=== PATIENT | female | born 1940 ===

== ENCOUNTER 2016-12-07 17:00 | Inpatient (IN) | payer MEDICARE ==
[2016-12-18] MEDS ORDERED: MECLIZINE 25 MG TABLET PO ONE (06:00)
[2016-12-18] MEDS ORDERED: METOCLOPRAMIDE 10 MG TABLET PO ONE (06:00)
[2016-12-18] MEDS ORDERED: VANCOMYCIN HCL 1,000 MG in 0.9 % SODIUM CHLORIDE 250ML 250 ML IVPB ONE (06:00)
[2016-12-18] MEDS ORDERED: CELECOXIB 100 MG CAPSULE PO ONE (06:00)
[2016-12-18] MEDS ORDERED: FAMOTIDINE 20MG TABLET PO ONE (06:00)
[2016-12-18 10:03] LABS: ABO GROUP O; ANTIBODY SCREEN NEGATIVE (NEGATIVE); RH TYPE POSITIVE
[2016-12-18] MEDS ORDERED: TRANEXAMIC ACID 1,000 MG/10 ML ML IV ONE ×2 (10:12→14:00)
[2016-12-18] MEDS ORDERED: BUPIVACAINE 0.5% W/EPI MPF 30 ML VIAL IVP ONE (10:12)
[2016-12-18] MEDS ORDERED: 0.9 % SODIUM CHLORIDE 10 ML VIAL IVP ONE (10:12)
[2016-12-18] MEDS ORDERED: ACETAMINOPHEN 325 MG TAB PO PRN (13:00)
[2016-12-18] MEDS ORDERED: HYDROMORPHONE HCL 1MG/ML **SYRINGE IM PRN (13:00)
[2016-12-18] MEDS ORDERED: ZOLPIDEM TARTRATE 5 MG TABLET PO PRN (13:00)
[2016-12-18] MEDS ORDERED: MAGNESIUM HYDROXIDE 30 ML UDC PO PRN (13:00)
[2016-12-18] MEDS ORDERED: HYDROMORPHONE HCL 2 MG/ML VIAL IM PRN (13:00)
[2016-12-18] MEDS ORDERED: ACETAMINOPHEN W/ CODEINE 300MG/60MG TABLET PO PRN ×2 (13:00)
[2016-12-18] MEDS ORDERED: NALOXONE 0.4 MG/1 ML VIAL IVP PRN (13:00)
[2016-12-18] MEDS ORDERED: KETOROLAC 30 MG/ML VIAL IVP PRN ×2 (13:00)
[2016-12-18] MEDS ORDERED: AL HYDROX/MAG HYDROX 30ML UD PO PRN (13:00)
[2016-12-18] MEDS ORDERED: BISACODYL 10 MG SUPP RC PRN (13:00)
[2016-12-18] MEDS ORDERED: DIPHENHYDRAMINE HCL 25 MG CAPSULE PO PRN (13:00)
[2016-12-18] MEDS ORDERED: ONDANSETRON HCL IV 4 MG/2 ML VIAL IVP PRN (13:00)
[2016-12-18] MEDS ORDERED: HYDROCODONE/APAP 10/325 TABLET PO PRN (13:00)
[2016-12-18] MEDS ORDERED: FENTANYL PF 100MCG/2ML VIAL IV ONE (14:00)
[2016-12-18] MEDS ORDERED: PROPOFOL 10 MG/ML VIAL IV ONE (14:00)
[2016-12-18] MEDS ORDERED: MIDAZOLAM HCL 2MG/2ML VIAL IV ONE (14:00)
[2016-12-18] MEDS ORDERED: ONDANSETRON HCL IV 4 MG/2 ML VIAL IVP ONE (14:00)
[2016-12-18] MEDS ORDERED: HYDROMORPHONE HCL 2 MG/ML VIAL IV ONE (14:00)
--- NOTE | 2016-12-18 17:00 | Rehab Evaluation ---
Patient Information - Patient Information Diagnosis: R knee OA Ordered Treatment: PT Evaluate and Treat Status: Initial Evaluation Surgery: Yes Date of Surgery: 12/18/16 Past Medical/Surgical Hx: PAST MEDICAL/SURGICAL HISTORY Surgery to Affected Area? Yes Recent Surgery? Past Surgical History 1972 right menisectomy , Childbirth 60, 62 and 67; 1993 [place], 2001-Total hyst, 2006- R bunionectomy, colonoscopies PMH - Respiratory Hx Respiratory Disorders Yes Hx Bronchitis Yes: Last winter-07/18 Hx Sleep Apnea Yes: Since 2005 Hx of CPAP Yes PMH - Cardiovascular Hx Cardiovascular Disorders Yes Hx Hypertension Yes: Occasionally 130-140 syst, no treatment Hx Rheumatic Fever mitral valve slow in closing sometimes Exercise Tolerance Good PMH - Neuro Hx Neurological Disorders No PMH - GI Hx Gastrointestinal Disorders No PMH - Hx Genitourinary Disorders No Hx Age of Menopause 48 Patient No PMH - Endocrine Hx Endocrine Disorders No PMH - Musculoskeletal Hx Musculoskeletal Disorders Yes Hx Arthritis Yes: both knees, generalized Comment: osteopenia PMH - Psych Hx Psychiatric Problems No PMH - Hematology/Oncology Hx Hematology/Oncology Yes Disorders Hx Anemia Yes: Due to the cancer Hx Blood Disorders Yes: lymphoma Hx Cancer Yes: non-hodgkins lymphoma-Tcell and Bcell in remission Hx Chemotherapy Yes: Retuxin X4 last in 12/17 and nitrogen mustard -96 Hx Radiation Therapy No Hx Blood Transfusion Reaction No Comment: 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 The patient 's bathroom is equipped with a walk in shower with a seat and grab bar, a elevated toilet with grab bars. The patient was independent with all ADL's and cloth reeler. The patient has a 4 wheeled walker. The patient's family was instructed to bring the patient's 4 wheeled walker tomorrow to see if patient could ambulate safely with this device. The family was assured a two wheeled walker could be vended if necessary. The patient going to a Rehabilitation facility following discharge from [facility].) - Time With Patient Total Time Spent With Patient (Min): 30 Treatment Procedures: Detail (PT initial Evaluation) Subjective Information - Subjective Information Per Patient (The patient was sleeping with CPAP when PT arrived with patient's family present. The patient was easily roused but frequently closed eyes and fell asleep during PT session. The patient complained of dizziness and nausea but denied R knee pain.) Objective Data - Mental Status Patient Orientation: Oriented x3 (The patient was lethargic but followed simple commands.) - Visual Perception Appears within normal limits for therapeutic activities - ROM Not within normal limits (The patient's R knee AROM was not formally assessed however knee extension was 0, flexion aprox. 70 degrees when sitting on the edge of bed. The patient's R hip and ankle AROM were WNL. The patient's L LE AROM was WFL.) - Strength/Tone Not within normal limits (The patient's R LE strength was not formally assessed secondary to status post surgery, however her strength was functional ie: patient was able to complete a SLR. The patient's L LE strength was also not formally assessed but was functional.) - Bed Mobility Independent (The patient was independent with supine to and from sit transfer and scooting up in bed.) - Transfers Independent (The patient required CG with sit to stand transfer and verbal cues for proper technique.) - Balance Balance Sitting: Good Balance Standing: Fair (The patient required support of 2 wheeled walker for safety.) - Gait Detail (The patient stood x 30 to 45 seconds to 2 wheeled walker with WBAT on the R LE with CG of 1. The patient had complaints of room spinning dizziness. Due to dizziness the patient did not ambulate at this time.) Therapy Assessment - Therapy Assessment Detail (The patient was independent with bed mobility . Due to the patient's symptoms of dizziness, nausea and lethargy the patient did not ambulate during initial PT session. Feel the patient will progress well as her symptoms resolve.) Problem List - Problem List Physical Therapy Problem List: Detail (1) Decreased R knee AROM and strength as to be expected following surgery. 2) Symptoms of dizziness and nausea 3) Assistance with ambulation and transfers) Goals - Goals Physical Therapy Goals: 1) The patient will be independent/supervision with assistive device WBAT on the R LE household and community distances. 2) The patient will be independent with all transfers. 3) The patient will be independent with HEP. Prognosis - Prognosis Good Plan - Plan Physical Therapy Plan: PT 1 to 2 times a day for gait training, transfer training, and instruction in HEP.
[2016-12-18] MEDS: POTASSIUM CHLORIDE/D5-0.9%NACL 20 MEQ/1,000 ML BAG IV SCH (17:06)
--- NOTE | 2016-12-18 19:20 | Operative Note ---
DATE: 12/18/2016. PREOPERATIVE DIAGNOSIS: Endstage arthrosis of the right knee. POSTOPERATIVE DIAGNOSIS: Endstage arthrosis of the right knee. PROCEDURE: Cemented right total knee arthroplasty using [employer] components with a size 6 cobalt-chrome femur, a size 5 stemmed tibial base plate, a 9.0 mm lipped tibial insert, and a 35 mm all-plastic patella. STAFF SURGEON: Chaim Willis M.D. ANESTHESIA: Spinal. PREPARATION: ChloraPrep. INDIVIDUAL CONSIDERATIONS: None. PROCEDURE: The patient was taken to the operating room and placed supine on the operating table. She had successful induction of a spinal anesthetic. Her right lower extremity was prepped and draped in the usual fashion. The limb was elevated and the tourniquet was inflated to 300 mm Hg. The patient had a midline approach to the knee. Sharp dissection was carried down through the skin and subcutaneous tissue. Small veins were coagulated with a Bovie. A medial arthrotomy was performed. The patella was everted and the knee was flexed. She had exposed bone with bone loss in the medial compartment and change in the patellofemoral compartment. The fat pads were resected, the ACL was sacrificed, and provisional anterior meniscectomies were performed. The capsule was released off of the medial proximal tibia. The initial femoral boat pilot hole was then made freehand. The intramedullary femoral cutting jig was placed. It was cut in 7.0 degrees of valgus and adjusted for rotation and secured with pins for a 10-mm resection. The initial transverse cut was then made. The skin guide was placed for the anterior and posterior boat pilot holes. It was found that a size 6 would be appropriate. The anterior and posterior cuts followed by chamfer cuts were made. Osteophytes were removed. A size 6 trial was placed and was found to fit well. The tibia was brought forward and the remainder of the meniscal remnants were removed with a Bovie. The extra-articular tibial cutting jig was placed. It was cut in neutral with a 3.0 degree AP slope. Care was taken to adjust the rotation and flexion using the extra-articular alignment guide and bony landmarks. It was set for a 9.0 mm resection, keyed off the high lateral side, and secured with pins. When cutting the tibia, care was taken to preserve the PCL insertion on the tibia. It was found that a size 5 would be appropriate. It was adjusted for rotation and secured with pins. With a 9.0 mm femoral trial , there was excellent motion and stability. Ligamentous balance, rotation alignment, and patellofemoral tracking were normal. The femoral boat pilot holes were impacted, a triflange tibial stamp was impacted, and these trial components were removed. The patient had a thick patella. Roughly 9.0 mm of bone was removed with the oscillating saw. I was able to fit a 35 patella, and the three boat pilot holes were drilled. The tourniquet was then let down briefly to get bleeders posteriorly and was then placed back up again. The knee was then copiously irrigated out with pulsatile Betadine and saline to remove any visual or palpable debris. The bony surfaces were then dried. A size 5 stemmed tibial baseplate was cemented into place followed by impaction of the 9.0 mm lipped tibial insert. This was followed by cementing in the size 6 cobalt-chrome femur. This was then followed by cementing in the 35 mm all plastic patella. Implant surfaces were compressed. Excess cement was removed and after the cement had set there was excellent motion and stability. Ligamentous balance, rotation, alignment, and patellofemoral tracking were normal. No lateral release was required. The capsule was then closed with a running #2 Quill. I did infiltrate the skin and subcutaneous tissue with 0.5% Marcaine, 30 cc, prior. Subcutaneous was closed with running 0 Quill and the skin was closed with sanjiv. The patient had received 1.0 gm of tranexamic acid preoperatively. I mixed 1.0 gm of tranexamic acid with 30 cc of saline and it was injected it into the knee through a sterile 18-gauge needle. Sterile bulky compressive dressing was applied, Aquacel type. The patient tolerated the procedures well. Needle and sponge counts were correct. Estimated blood loss was minimal. She was taken back to the recovery room in good condition. There were no complications. cc: Taylor Reynoso M.D. CRISTINE
[2016-12-18] MEDS: VANCOMYCIN HCL 1 MG in 0.9 % SODIUM CHLORIDE 250ML 250 ML IVPB SCH (21:36)
[2016-12-18] MEDS: DOCUSATE SODIUM 100 MG CAPSULE PO SCH (21:44)
[2016-12-19] MEDS: POTASSIUM CHLORIDE/D5-0.9%NACL 20 MEQ/1,000 ML BAG IV SCH (02:58)
[2016-12-19 06:47] LABS: HEMATOCRIT 37.7 % (35.0-47.0); HEMOGLOBIN 11.9 gm/dl (11.6-16.0)
[2016-12-19 07:30] LABS: BLOOD UREA NITROGEN 17 mg/dL (8-23); CREATININE 0.6 mg/dL (0.5-0.9); EST GLOMERULAR FILTRATION RATE > 60 mL/min; GLUCOSE,RANDOM 140 mg/dL (74-109)
[2016-12-19] MEDS: FERROUS SULFATE 325 MG TAB PO SCH (10:08)
[2016-12-19] MEDS: RIVAROXABAN 10 MG TABLET PO SCH (10:08)
[2016-12-19] MEDS: DOCUSATE SODIUM 100 MG CAPSULE PO SCH ×2 (10:08→21:50)
[2016-12-19] MEDS: VANCOMYCIN HCL 1 MG in 0.9 % SODIUM CHLORIDE 250ML 250 ML IVPB SCH (10:23)
--- NOTE | 2016-12-19 10:39 | Physical Therapy Tx Note ---
Physical Therapy Tx Note - Treatment Note Tolerated: Good (Patient doing quite well this am, up in chair already and wants to get up to walk. Able to walk about 50 feet with FWW and CGA into tomlinson and back to bed.) Physical Therapy Tx Note: Detail (Patient seen bedside, sitting up in chair ( reclining type) and able to tolerate bringing legs down to floor easily. Sit to stand with CGA and FWW then ambulate 10 feet into bathroom with CGA and FWW, placed BSC over toilet seat to raise up seat for comfort. Able to sit and rise from seat much more easily with SBA only. Washed hands then ambulated into [place]inson about 50 feet with FWW and CGA then back to bed, min assist with right LE into bed, but patient independent up in bed. Worked on knee exercises: heel slides, quad, glut and ham sets then assisted SLR. Made sure tray table and call light close and cryocuff in place.) Physical Therapy Problem List: Detail (1) Decreased R knee AROM and strength as to be expected following surgery. 2) Symptoms of dizziness and nausea 3) Assistance with ambulation and transfers) Physical Therapy Goals: 1) The patient will be independent/supervision with assistive device WBAT on the R LE household and community distances. 2) The patient will be independent with all transfers. 3) The patient will be independent with HEP. Prognosis: Good (Patient doing quite well. Plans to go to rehab facility when leaves [facility] so may not push steps while here.) Physical Therapy Plan: PT 1 to 2 times a day for gait training, transfer training, and instruction in HEP.
--- NOTE | 2016-12-19 12:27 | Rehab Evaluation ---
Patient Information - Patient Information Diagnosis: R knee OA Ordered Treatment: OT Evaluate and Treat Status: Initial Evaluation Surgery: Yes Date of Surgery: 12/18/16 Past Medical/Surgical Hx: PAST MEDICAL/SURGICAL HISTORY Surgery to Affected Area? Yes Recent Surgery? Past Surgical History 1972 right menisectomy , Childbirth 60, 62 and 67; 1993 [place], 2001-Total hyst, 2006- R bunionectomy, colonoscopies PMH - Respiratory Hx Respiratory Disorders Yes Hx Bronchitis Yes: Last winter-07/18 Hx Sleep Apnea Yes: Since 2005 Hx of CPAP Yes PMH - Cardiovascular Hx Cardiovascular Disorders Yes Hx Hypertension Yes: Occasionally 130-140 syst, no treatment Hx Rheumatic Fever Yes: mitral valve slow in closing sometimes Exercise Tolerance Good PMH - Neuro Hx Neurological Disorders No PMH - GI Hx Gastrointestinal Disorders No PMH - Hx Genitourinary Disorders No Hx Age of Menopause 48 Patient No PMH - Endocrine Hx Endocrine Disorders No PMH - Musculoskeletal Hx Musculoskeletal Disorders Yes Hx Arthritis Yes: both knees, generalized Comment: osteopenia PMH - Psych Hx Psychiatric Problems No PMH - Hematology/Oncology Hx Hematology/Oncology Yes Disorders Hx Anemia Yes: Due to the cancer Hx Blood Disorders Yes: lymphoma Hx Cancer Yes: non-hodgkins lymphoma-Tcell and Bcell in remission Hx Chemotherapy Yes: Retuxin X4 last in 12/17 and nitrogen mustard -96 Hx Radiation Therapy No Hx Blood Transfusion Reaction No Comment: 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 reports being Ind w/ all I/ADL's prior to sx.) Social History: Detail (The patient lives alone in a first story senior apartment with no stairs at the enterance. The patient 's bathroom is equipped with a walk in shower with a seat and grab bar, a elevated toilet with grab bars.) Precautions: [place], Fall - Time With Patient Total Time Spent With Patient (Min): 30 Subjective Information - Subjective Information Per Patient Objective Data - Pain Pain Present: Yes (05/11 pain R knee ache.) - Mental Status Patient Orientation: Oriented x3 - Visual Perception Appears within normal limits for therapeutic activities - ROM Within normal limits (BUE) - Strength/Tone Not within normal limits (BUE 4/5 MMT shd flex, abd, biceps, triceps. Pt. reports hx of L shd injury 20+ yrs ago, with no residual deficits.) - Coordination Appears within normal limits for therapeutic activities - Bed Mobility Needs Assist (Pt. required mod assist to move RLE from bed to floor while transitioning to sitting EOB.) - Transfers Needs Assist (CGA sit<>stand from EOB to 2WW; pt. avoids bearing weight on RLE until cued.) - Balance Balance Sitting: Good Balance Standing: Fair - Sensation Intact - ADL's/IADL's Detail (Pt. declined to attempt dressing activity or travel to bathroom (was seen by PT shortly before OT arrived), but demo. ability to remove bilateral socks. Pt. required min A to don RLE sock. Introduction/educ. provided of insert molding operator and sock aid to dress RLE. Educ. provided on dressing techniques; pt. verbalized understanding.) Therapy Assessment - Therapy Assessment Detail (Pt. would benefit from skilled OT services to maximize safety and independence with ADL's, and increase BUE strength. Pt. plans to d/c to [facility]; good plan.) Patient Education - Patient Education Teaching Topic: Equipment Use Response: Verbalize Understanding Teaching Method: Discussion, Demonstration Teaching Recipient: Patient Barriers To Learning: Other (Pt. was mildly lethargic (possibly d/t medication side effects), but was able to answer questions and follow simple directions.) Problem List - Problem List Physical Therapy Problem List: Detail (1) Decreased R knee AROM and strength as to be expected following surgery. 2) Symptoms of dizziness and nausea 3) Assistance with ambulation and transfers) Occupational Therapy Problem List: Detail (1) Decreased safety and independence with LB dressing 2) decreased BUE strength 3) decreased endurance for ADL activities 4) impaired functional mobility) Goals - Goals Physical Therapy Goals: 1) The patient will be independent/supervision with assistive device WBAT on the R LE household and community distances. 2) The patient will be independent with all transfers. 3) The patient will be independent with HEP. Occupational Therapy Goals: 1) Pt. will safely demo. LB dressing with modified ind., using AE if needed. 2) Assess shower skills; pt. will safely shower with modified ind. 3) Improve BUE strength to 4+/5 MMT generally. 4) Increase activity endurance to tolerate typical ADL morning routine. 5) Improve functional mobility to ambulate household distances safely. Prognosis - Prognosis Good (Pt. may require extra time to achieve goals (may be continued at [facility]).) Plan - Plan Physical Therapy Plan: PT 1 to 2 times a day for gait training, transfer training, and instruction in HEP. Occupational Therapy Plan: Provide in-pt OT services 2-4x/week M-F during typical rehab services business hours.
[2016-12-19] MEDS: HYDROCODONE/APAP 10/325 TABLET PO PRN ×2 (13:38→21:50)
--- NOTE | 2016-12-19 15:32 | Physical Therapy Tx Note ---
Physical Therapy Tx Note - Treatment Note Tolerated: Good (Patient feeling pretty good and understands that she is leaving for rehab facility tomorrow am and ready to go. Able to ambulate twice as far as this am and also able to do stairs today with quite a lot of assist.) Total Time Spent With Patient: 30 Physical Therapy Tx Note: Detail (Patient seen in room and sitting up in bed. Supine to sit with very little assist with right LE, sit to stand with CGA and FWW from bed. Ambulated with FWW and CGA to bathroom and able to sit down on stool and get back up with CGA only, washed hands then ambulated into tomlinson about 50 feet then sat down in wheelchair and we wheeled her to stairs. Able to ambulate to edge of steps then down three steps with folded walker and rail, min assist then used walker to turn around and ambulated back up three steps with folded walker and rail, min assist and proper technique. Ambulated about 30 more feet then sat in wheelchair and wheeled back to room. Wanted to stay in wheelchair as felt more comfortable than in recliner chair. Performed some of knee exercises seated in chair: hip and knee flexion and extension, LAQ and ham curls, ankle pumps and isometrics. Made sure tray table close; in fact, base of tray table supporting LES. Call light close and replaced cryocuff.) Physical Therapy Problem List: Detail (1) Decreased R knee AROM and strength as to be expected following surgery. 2) Symptoms of dizziness and nausea 3) Assistance with ambulation and transfers) Physical Therapy Goals: 1) The patient will be independent/supervision with assistive device WBAT on the R LE household and community distances. 2) The patient will be independent with all transfers. 3) The patient will be independent with HEP. Prognosis: Good (Patient leaving for rehab facility tomorrow and has passed all skills to be discontinued from PT now. She can continue to work on gait with nursing.) Physical Therapy Plan: PT 1 to 2 times a day for gait training, transfer training, and instruction in HEP.
[2016-12-20] MEDS: POTASSIUM CHLORIDE/D5-0.9%NACL 20 MEQ/1,000 ML BAG IV SCH ×3 (05:42→07:17)
[2016-12-20 06:31] LABS: HEMATOCRIT 36.6 % (35.0-47.0); HEMOGLOBIN 11.4 gm/dl (11.6-16.0)
[2016-12-20 06:55] LABS: BLOOD UREA NITROGEN 17 mg/dL (8-23); CREATININE 0.7 mg/dL (0.5-0.9); EST GLOMERULAR FILTRATION RATE > 60 mL/min; GLUCOSE,RANDOM 115 mg/dL (74-109)
--- NOTE | 2016-12-20 07:29 | RADIOLOGY REPORT ---
EXAM: PORTABLE CHEST HISTORY: REHAB PLACEMENT. TECHNIQUE: A single mobile upright AP view of the chest was obtained. Comparison: None. FINDINGS: The heart projects mildly enlarged, but without pulmonary venous hypertension. No confluent air space opacity is seen nor is there costophrenic angle blunting of pneumothorax. There are mild degenerative changes of the visualized spine and shoulder girdles. IMPRESSION: THE HEART PROJECTS MILDLY ENLARGED, BUT WITHOUT PULMONARY VENOUS HYPERTENSION. NO EVIDENCE OF AN ACUTE PULMONARY PROCESS. JOB NUMBER: [id number] [facility]
--- NOTE | 2016-12-20 07:45 | Discharge Note ---
VTE H&P Assessment - Risk for VTE Risk for VTE: Yes Risk Level: Moderate Risk Assessment Date: 12/18/16 Risk Assessment Time: 16:00 VTE Orders Placed or Will Be Placed: Yes Discharge Medications - Discharge Medications Prescriptions: Rivaroxaban [Xarelto] 10 mg PO Q24H #30 tab Home Medications: Ambulatory Orders Acetaminophen [Tylenol 325Mg] 650 mg PO Q4H PRN 12/20/16 [Last Taken Unknown] Docusate Sodium [Colace] 100 mg PO BID cap 12/20/16 [Last Taken Unknown] Hydrocodone/Acetaminophen [[place] 5mg/325mg] 1 tab PO Q6H PRN #30 tab 12/20/16 [ Last Taken Unknown] Rivaroxaban [Xarelto] 10 mg PO Q24H #30 tab 12/20/16 [Last Taken Unknown] Discharge Note - Date Date of Discharge Note: 12/20/16 Disposition: Inpatient Rehab Facility Condition: (1) Good Additional Instructions: follow up with Dr. Willis as scheduled Prescriptions: Hydrocodone/Acetaminophen [[place] 5mg/325mg] 1 tab PO Q6H PRN #30 tab PRN Reason: Pain - General Rivaroxaban [Xarelto] 10 mg PO Q24H #30 tab Referrals: ELIZA STEPHENSON [Primary Care Provider] - Activity at Discharge: As Per Physical Therapy Diet at Discharge: Regular Diet
[2016-12-20] MEDS: HYDROCODONE/APAP 10/325 TABLET PO PRN (08:31)
[2016-12-20] MEDS: RIVAROXABAN 10 MG TABLET PO SCH (10:14)
[2016-12-20] MEDS: DOCUSATE SODIUM 100 MG CAPSULE PO SCH (10:14)
[2016-12-20] MEDS: FERROUS SULFATE 325 MG TAB PO SCH (10:14)
--- NOTE | 2016-12-20 13:30 | Discharge Summary ---
DATE OF ADMISSION: 12/18/2016 DATE OF DISCHARGE: 12/20/2016 at 8 a.m. DISCHARGE DIAGNOSES: 1. Total right knee replacement. 2. Sleep apnea. 3. History of non-Hodgkin's lymphoma, in remission. 4. Mitral valve regurgitation, stable. Being followed by [facility] in [place], [place]. ATTENDING PHYSICIAN: Yousif Clarke DO ORTHOPEDIC SURGEON: Chaim Willis MD REASON FOR HOSPITALIZATION: Patient was admitted after right total knee arthroplasty. Hemoglobin on discharge was 11.3, potassium was 4, BUN 17, creatinine 0.7. Patient is having physical therapy after surgery and is doing very well. Using [place] for pain and on Xarelto 10 mg a day. HOSPITAL COURSE: Unremarkable. CONDITION AT DISCHARGE: Improved, and planning to go to rehab in [place], [place], which is near her daughter, to continue her rehab for her total right knee replacement. Dr. Willis will be setting up the postsurgical orders. DISCHARGE INSTRUCTIONS: Follow up with Dr. Willis as scheduled. Follow up with her primary doctor after she gets out of rehab, which is Dr. Taylor Reynoso. She is to continue her CPAP machine at home and at the rehab center. [facility]
--- NOTE | 2016-12-21 06:54 | Discharge Summary ---
DATE OF ADMISSION: 12/18/2016. DATE OF DISCHARGE: 12/20/2016. DATE OF SURGERY: 12/18/2016. HISTORY: Zainab is an extremely delightful 76-year-old female who presents with endstage arthrosis of the right knee. She was admitted after right total knee arthroplasty. Postoperatively she did extremely well. Her hospital course was unremarkable. Her discharge hemoglobin was above 9. PLAN: The plan is to transfer her to rehabilitation. She will be given [place] for pain, and she should be maintained on Xarelto for 15 more days for deep venous thrombosis prophylaxis. After that she can take one regular aspirin daily for 30 days. Her sutures should be removed in two weeks, and she should follow up in my office in four weeks. DISCHARGE CONDITION: Good. FINAL DIAGNOSIS: Primary diagnosis is endstage arthrosis of the right knee. OPERATIONS AND PROCEDURES: Cemented right total knee arthroplasty. EDMOND MAYNARD M.D. Date & Time cc: Taylor Reynoso M.D. JOB NUMBER: [id number] [facility]
== END 2016-12-20 11:15 | DRG 470 ==
LOC: MEDSURG 12-18 08:51
PROVIDERS: ADMIT Orthopaedic Surgery; ATTEND Orthopaedic Surgery
PROC: 0SRC069 Replacement of Right Knee Joint with Oxidized Zirconium on Polyethylene Synthetic Substitute, Cemented, Open Approach (ICD-10-PCS; principal; 2016-12-18 11:00)
DX: M17.11 Unilateral primary osteoarthritis, right knee (principal); Z85.72 Personal history of non-Hodgkin lymphomas; E78.00 Pure hypercholesterolemia, unspecified; E78.1 Pure hyperglyceridemia; D47.2 Monoclonal gammopathy; I34.0 Nonrheumatic mitral (valve) insufficiency; I10 Essential (primary) hypertension
CPT/HCPCS: 71010; 80048; 85014; 85018; 86850; 86900; 86901; 94660; 94760; 94761; 97110; 97116; 97165; 99233; 99239; C1776; J2405; J3480; J7050